=== PATIENT | male | born 1985 | race Two or more races ===

== ENCOUNTER 2017-11-29 17:13 | Emergency (ER) | payer SELFPAY ==
[2017-11-29] MEDS ORDERED: NORMAL SALINE 1000 ML 1,000 ML IV ONE (18:21)
[2017-11-29 18:35] LABS: ABSOLUTE EOSINOPHILS # (AUTO) 0.1 10^3/uL (0.0-0.6); ABSOLUTE LYMPHOCYTES (AUTO) 3.2 10^3/uL (0.5-4.7); ABSOLUTE MONOCYTES (AUTO) 0.5 10^3/uL (0.1-1.4); ABSOLUTE NEUT (AUTO) 2.7 10^3/uL (1.7-8.2); BASOPHILS % (AUTO) 0.7 % (0-2); EOSINOPHILS % (AUTO) 2.3 % (0-6); HEMATOCRIT 41.4 % (37.9-51.0); HEMOGLOBIN 14.1 g/dL (13.5-17.0); LYMPHOCYTES % (AUTO) 48.8 % (13-45); MEAN CORPUSCULAR HEMOGLOBIN 30.7 pg (27.0-33.4); MEAN CORPUSCULAR HGB CONC 34.1 g/dL (32.0-36.0); MEAN CORPUSCULAR VOLUME 90 fl (80-97); MONOCYTES % (AUTO) 7.1 % (3-13); PLATELET COUNT 252 10^3/uL (150-450); RED CELL DISTRIBUTION WIDTH 13.4 % (11.5-14.0); SEGMENTED NEUTROPHILS % (AUTO) 41.1 % (42-78); TOTAL CELLS COUNTED % (AUTO) 100 %; WHITE BLOOD COUNT 6.5 10^3/uL (4.0-10.5)
--- NOTE | 2017-11-29 18:38 | RADIOLOGY REPORT (SQ) ---
EXAM DESCRIPTION: CHEST SINGLE VIEW COMPLETED DATE/TIME: 11/29/2017 6:26 pm REASON FOR STUDY: SOB COMPARISON: None. EXAM PARAMETERS: NUMBER OF VIEWS: One view. TECHNIQUE: Single frontal radiographic view of the chest acquired. RADIATION DOSE: NA LIMITATIONS: None. FINDINGS: LUNGS AND PLEURA: No opacities, masses or pneumothorax. No pleural effusion. MEDIASTINUM AND HILAR STRUCTURES: No masses. Contour normal. HEART AND VASCULAR STRUCTURES: Heart normal in size. Normal vasculature. BONES: No acute findings. HARDWARE: None in the chest. OTHER: No other significant finding. IMPRESSION: NO ACUTE RADIOGRAPHIC FINDING IN THE CHEST. TECHNICAL DOCUMENTATION: JOB ID: [id number] [employer]- All Rights Reserved Reading location - IP/workstation name: [email or web address]
--- NOTE | 2017-11-29 18:52 | ER Document Report ---
ED General - General Chief Complaint: Shortness Of Breath Stated Complaint: WEAKNESS Time Seen by Provider: 11/29/17 18:20 Notes: Patient is a 32-year-old male with a past medical history of hepatitis C, chronic alcohol abuse who presents complaining of confusion and shortness of breath. He was working outside today, was noted to be confused by staff and sent to the emergency department via ambulance. The patient is visibly intoxicated. Does admit to drinking heavily today. History is somewhat limited secondary to the patient's intoxication. He does note a history of hepatitis C but states he has not yet started treatment for it. He states that he has smoked in the past but denies current tobacco abuse. Denies any history of asthma or COPD. Nothing has improved or worsened his symptoms since onset. He overall denies feeling short of breath at this point, states he does feel intoxicated. The history and physical exam was obtained by the provider using Filipino. A formal hospital supervisor lens generating was offered to the patient and any family at the bedside at the beginning of the encounter and was declined. TRAVEL OUTSIDE OF THE [place] IN LAST 30 DAYS: No - Related Data Allergies/Adverse Reactions: No Known Allergies Allergy (Unverified 11/29/17 18:32) Past Medical History - General Information source: Patient - Social History Smoking Status: Current Some Day Smoker Frequency of alcohol use: Heavy Drug Abuse: None Lives with: Family Family History: Reviewed & Not Pertinent Patient has suicidal ideation: No Patient has homicidal ideation: No Renal/ Medical History: Denies: Hx Peritoneal Dialysis Review of Systems - Review of Systems Notes: Constitutional: Negative for fever. HENT: Negative for sore throat. Eyes: Negative for visual changes. Cardiovascular: Negative for chest pain. Respiratory: Positive for shortness of breath. Gastrointestinal: Negative for abdominal pain, vomiting or diarrhea. Genitourinary: Negative for dysuria. Musculoskeletal: Negative for back pain. Skin: Negative for rash. Neurological: Negative for headaches, weakness or numbness. Positive for confusion intoxication 10 point ROS negative except as marked above and in HPI. Physical Exam - Vital signs Vitals: Resp Pulse Ox 17 96 11/29/17 17:31 11/29/17 17:31 Interpretation: Normal Notes: PHYSICAL EXAMINATION: GENERAL: Well-appearing, no distress, intoxicated HEAD: Atraumatic, normocephalic. EYES: Pupils equal round and reactive to light, extraocular movements intact, sclera anicteric, conjunctiva are normal. ENT: nares patent, oropharynx clear without exudates. Moderately dry mucous membranes. NECK: Normal range of motion, supple without lymphadenopathy LUNGS: Breath sounds clear to auscultation bilaterally and equal. No wheezes rales or rhonchi. HEART: Regular rate and rhythm without murmurs ABDOMEN: Soft, nontender, normoactive bowel sounds. No guarding, no rebound. No masses appreciated. EXTREMITIES: Normal range of motion, no pitting or edema. No cyanosis. NEUROLOGICAL: No focal neurological deficits. Moves all extremities spontaneously and on command. PSYCH: Alert, oriented, intoxicated SKIN: Warm, Dry, normal turgor, no rashes or lesions noted. Course - Re-evaluation Re-evalutation: 11/29/17 18:54 Patient presents acutely intoxicated. He was apparently complaining of shortness of breath but denies this symptom at this time. The patient has clear breath sounds bilaterally, vitals within normal limits. Clinical history is not consistent with an acute pneumothorax, pneumonia or pulmonary embolus. ACS seems highly unlikely given clinical context, normal EKG, absence of chest pain. Chest x-ray is noted to be clear. The patient appears mostly to be intoxicated as the chief reason for presentation. Will obtain basic laboratories and monitor for clinical sobriety. 11/29/17 19:25 Labs overall unremarkable with the exception of a transaminitis which is expected given the patient's alcohol abuse and known history of hepatitis C. His alcohol is markedly elevated, consistent with acute intoxication. The patient will be monitored until he is clinically sober, able to walk without difficulty or until he has a sober ride home. There is no other medical indication to continue to monitor the patient at this point otherwise. - Vital Signs Vital signs: Temp Pulse Resp BP Pulse Ox 12 122/88 H 99 11/29/17 17:32 11/29/17 17:32 11/29/17 17:32 - Laboratory Result Diagrams: 11/29/17 17:30 11/29/17 17:30 Laboratory results interpreted by me: 11/29/17 11/29/17 17:30 17:30 Seg Neutrophils % 41.1 L Lymphocytes % 48.8 H Sodium 145.1 H Chloride 108 H BUN 6 L Glucose 163 H AST 109 H ALT 258 H Serum Alcohol 321 H* - Diagnostic Test Radiology reviewed: Image reviewed, Reports reviewed Radiology results interpreted by me: 11/29/17 18:55 Chest x-ray: No acute infiltrate or pneumothorax Discharge - Discharge Clinical Impression: Alcohol abuse, Shortness of breath Alcohol intoxication Qualifiers: Complication of substance-induced condition: uncomplicated Qualified Code(s): F10.920 - Alcohol use, unspecified with intoxication, uncomplicated Condition: Good Disposition: HOME, SELF-CARE Additional Instructions: You were seen in the emergency department today for being drunk. Being seen in the emergency department after drinking alcohol is a serious indicator that you have a problem with alcohol. You should seek help with the attached resources for your problem drinking. Please return to the emergency room immediately if you experience any concerning symptoms including high fevers, severe headache, chest pain, difficulty breathing, abdominal pain, slurred speech, numbness or weakness in your arms or legs, or any other symptom that concerns you.
[2017-11-29 18:56] LABS: ALANINE AMINOTRANSFERASE 258 U/L (21-72); ALBUMIN 4.4 g/dL (3.5-5.0); ALKALINE PHOSPHATASE 99 U/L (38-126); ANION GAP 14 (5-19); ASPARTATE AMINO TRANSFERASE 109 U/L (17-59); BILIRUBIN,DIRECT 0.3 mg/dL (0.0-0.4); BILIRUBIN,TOTAL 0.6 mg/dL (0.2-1.3); BLOOD UREA NITROGEN 6 mg/dL (7-20); CALCIUM 8.8 mg/dL (8.4-10.2); CARBON DIOXIDE 23 mmol/L (22-30); CHLORIDE 108 mmol/L (98-107); GLUCOSE 163 mg/dL (75-110); POTASSIUM 4.3 mmol/L (3.6-5.0); SODIUM 145.1 mmol/L (137-145); TOTAL PROTEIN 8.2 g/dL (6.3-8.2)
[2017-11-29 19:07] LABS: ALCOHOL 321 mg/dL (NONE DETECTED)
--- NOTE | 2017-11-29 19:45 | EKG REPORT ---
SEVERITY:- BORDERLINE ECG - SINUS RHYTHM LEFT AXIS DEVIATION BORDERLINE T WAVE ABNORMALITIES BORDERLINE ST ELEVATION, ANTERIOR LEADS : Confirmed by: Chary Means MD 29-Nov-2017 19:44:34
[2017-11-29 20:00] VITALS: BP 132/85
== END 2017-11-29 19:58 | disposition home or self-care (01) ==
LOC: ER 17:13
DX: R06.02 Shortness of breath (principal); R53.1 Weakness; R41.0 Disorientation, unspecified; B19.20 Unspecified viral hepatitis C without hepatic coma; F10.920 Alcohol use, unspecified with intoxication, uncomplicated; F17.200 Nicotine dependence, unspecified, uncomplicated
CPT/HCPCS: 93005; 99285; 96360; 36415; 80307; 82140; 85025; 80053; 84484; 71045; 93010; J7030